=== PATIENT | male | born 1930 | race Hispanic/Latino ===

== ENCOUNTER → 2018-08-22 | Outpatient (CLI) | payer MEDICARE ==
[~2018-08-22] MED LIST: ACET1TAB12 PO; ALBU8.5H8 IH; AMLO1CAP12 PO; BENZ200C53 PO; METF-446 PO; ROSU10TA GT; SITA100T12 PO
== END | disposition home or self-care (01) ==
LOC: RAH 12:16
PROVIDERS: ATTEND Podiatrist
DX: M77.31 Calcaneal spur, right foot (principal); M25.471 Effusion, right ankle; T84.19 Other mechanical complication of internal fixation device of bones of limb; X58.XXXS Exposure to other specified factors, sequela
CPT/HCPCS: 73610

== ENCOUNTER 2019-07-23 09:45 | Day surgery (SDC) | payer MEDICARE ==
[2019-07-21 14:19] VITALS: BP 160/62
[2019-07-21 14:20] LABS: BASOPHILS % (AUTO) 0.7 % (0.0-5.0); EOSINOPHILS % (AUTO) 2.4 % (0.0-8.0); HEMATOCRIT 37.3 % (42-54); MEAN CORPUSCULAR HEMOGLOBIN 28.7 pg (27.0-33.0); MEAN CORPUSCULAR HGB CONC 33.7 g/dL (32.0-36.0); MEAN CORPUSCULAR VOLUME 85.1 fL (79-99); MONOCYTES % (AUTO) 7.1 % (3.0-13.0); NEUTROPHILS % (AUTO) 73.8 % (40.0-77.0); NUCLEATED RED BLOOD CELLS 0.1 % (0.0-0.19); PLATELET COUNT (AUTO) 209 K/uL (130-400); RED BLOOD CELL COUNT(AUTO) 4.38 MIL/uL (4.50-6.20); RED CELL DISTRIBUTION WIDTH 14.5 % (11.0-15.5); WHITE BLOOD COUNT (AUTO) 7.4 K/uL (4.8-10.8)
[2019-07-21 14:24] LABS: APPEARANCE,URINE SL CLOUDY (CLEAR); BILIRUBIN,URINE NEGATIVE (NEGATIVE); COLOR,URINE YELLOW (YELLOW); GLUCOSE, URINE (UA) NEGATIVE (NEGATIVE); KETONES,URINE NEGATIVE (NEGATIVE); LEUKOCYTE ESTERASE ,URINE MODERATE (NEGATIVE); NITRATE,URINE POSITIVE (NEGATIVE); OCCULT BLOOD,URINE SMALL (NEGATIVE); PROTEIN,URINE NEGATIVE (NEGATIVE); UROBILINOGEN,URINE 0.2 mg/dL (0.2-1.0)
[2019-07-21 14:33] LABS: CREATININE 1.4 mg/dL (0.5-1.5); POTASSIUM 4.4 mmol/L (3.5-5.1)
[2019-07-21 14:34] LABS: BACTERIA,URINE Many /HPF (None Seen); RBC,URINE 0-1 /HPF (0-1); SQUAMOUS EPITHELIAL CELL,UR Rare /HPF (0-2); WBC,URINE >100 /HPF (0-1)
[2019-07-21 14:36] LABS: INR 1.04 (0.85-1.15); PARTIAL THROMBOPLASTIN TIME 30.1 SEC (26.3-35.5); PROTHROMBIN TIME 10.9 SEC (9.6-11.6)
--- NOTE | 2019-07-22 14:40 | NUR ---
REPORTED EKG WITH DOCTOR CORCORAN NO NEW ORDERS, OKAY TO PROCEED.
--- NOTE | 2019-07-22 17:12 | NUR ---
DR. EDEN NOTIFIED OF ABNORMAL UA OK TO PROCEED PT ON ANTIBIOTICS
[2019-07-23] VITALS (14 sets, daily range): BP systolic 99–137; BP diastolic 42–60
[~2019-07-23] VITALS: Ht 162.6 cm; Wt 85.5 kg
[~2019-07-23 09:45] MED LIST changes: -ACET1TAB12 PO; -ALBU8.5H8 IH; -AMLO1CAP12 PO; +AMLO5TAB9 PO; +ASPI-555 PO; -BENZ200C53 PO; +CEFTRIAXONE SODIUM 1 GM IVP ONE; +CYAN500T63 PO; +DOCU-116 PO; +FINA5TAB41 PO; +GENTAMICIN SULFATE IV PRN; +LINA5TAB PO; +LOSA50TA64 PO; -METF-446 PO; -ROSU10TA GT; +ROSU5TAB12 PO; -SITA100T12 PO; +SODIUM CHLORIDE 0.9% IV PRN; +TAMS-1 PO
[2019-07-23] MEDS ORDERED: SODIUM CHLORIDE 0.9% 1000ML 1,000 ML IV ONE (10:55)
[2019-07-23] MEDS: CEFTRIAXONE SODIUM 1 GM ONE ×2 (11:10→13:15)
[2019-07-23] MEDS ORDERED: GENTAMICIN SULFATE 360 MG in SODIUM CHLORIDE 0.9% 100 ML IV PRN (11:15)
[2019-07-23] MEDS ORDERED: SUCCINYLCHOLINE 200MG/10ML SYR ONE (11:18)
[2019-07-23] MEDS ORDERED: MIDAZOLAM HCL 1 MG/ML 2ML VIAL ONE ×2 (11:18→14:38)
[2019-07-23] MEDS ORDERED: GLYCOPYRROLATE 1 MG/5 ML SYRINGE ONE (11:18)
[2019-07-23] MEDS ORDERED: DEXAMETHASONE SOD PHOSPHATE 10MG/ML 1ML VIAL ONE (11:18)
[2019-07-23] MEDS ORDERED: LIDOCAINE PF 2% 5ML ABBOJECT ONE (11:18)
[2019-07-23] MEDS ORDERED: ONDANSETRON HCL 4 MG/2 ML VIAL ONE (11:19)
[2019-07-23] MEDS ORDERED: FENTANYL CITRATE PF 50 MCG/1 ML 2ML VIAL ONE (11:19)
[2019-07-23] MEDS ORDERED: ROCURONIUM 10MG/1ML SYR 10 MG/ML ML ONE (11:19)
[2019-07-23] MEDS ORDERED: PROPOFOL 10 MG/ML 20ML VIAL IV ONE (11:19)
[2019-07-23] MEDS ORDERED: NEOSTIGMINE 5MG/5ML SYR IV ONE (11:19)
[2019-07-23] MEDS ORDERED: MEPERIDINE-PF 25 MG/ML SYG ONE ×2 (14:47→14:59)
== END 2019-07-23 16:20 | disposition home or self-care (01) ==
LOC: DAH 09:45
PROVIDERS: ATTEND Urology
DX: N40.1 Benign prostatic hyperplasia with lower urinary tract symptoms (principal); R33.9 Retention of urine, unspecified; N32.89 Other specified disorders of bladder; I10 Essential (primary) hypertension; E11.9 Type 2 diabetes mellitus without complications; E78.5 Hyperlipidemia, unspecified; Z85.46 Personal history of malignant neoplasm of prostate
CPT/HCPCS: 36415; 52648; 71045; 80048; 81001; 82948 ×2; 85025; 85610; 85730; 87077; 87088; 87186; 93005; 96365; A4215; A4221; A4222; A4223; A4354; A4358; A4600; A4663; A6260; J0330; J0696; J1100; J1580; J2001; J2175 ×2; J2250 ×2; J2405; J2704; J2710; J3010; J3490; J7030 ×2

== ENCOUNTER 2019-09-07 05:45 | Emergency (ER) | payer MEDICARE ==
[~2019-09-07 05:45] MED LIST changes: -CEFTRIAXONE SODIUM 1 GM IVP ONE; -GENTAMICIN SULFATE IV PRN; -SODIUM CHLORIDE 0.9% IV PRN
[2019-09-07 06:15] LABS: APPEARANCE,URINE CLOUDY (CLEAR); BILIRUBIN,URINE NEGATIVE (NEGATIVE); COLOR,URINE YELLOW (YELLOW); GLUCOSE, URINE (UA) NEGATIVE (NEGATIVE); KETONES,URINE 5 mg/dL (NEGATIVE); LEUKOCYTE ESTERASE ,URINE LARGE (NEGATIVE); NITRATE,URINE NEGATIVE (NEGATIVE); OCCULT BLOOD,URINE LARGE (NEGATIVE); PROTEIN,URINE 30 mg/dL (NEGATIVE); UROBILINOGEN,URINE 0.2 mg/dL (0.2-1.0)
[2019-09-07] MEDS ORDERED: HYOSCYAMINE SULFATE 0.125 MG TAB.SUBL SL ONE (06:16)
[2019-09-07 06:29] LABS: BASOPHILS % (AUTO) 0.6 % (0.0-5.0); EOSINOPHILS % (AUTO) 1.3 % (0.0-8.0); HEMATOCRIT 33.1 % (42-54); LYMPHOCYTES % (AUTO) 12.7 % (21.0-51.0); MEAN CORPUSCULAR HEMOGLOBIN 28.9 pg (27.0-33.0); MEAN CORPUSCULAR HGB CONC 34.1 g/dL (32.0-36.0); MEAN CORPUSCULAR VOLUME 84.9 fL (79-99); NEUTROPHILS % (AUTO) 78.4 % (40.0-77.0); PLATELET COUNT (AUTO) 184 K/uL (130-400); RED CELL DISTRIBUTION WIDTH 14.7 % (11.0-15.5); WHITE BLOOD COUNT (AUTO) 8.1 K/uL (4.8-10.8)
[2019-09-07 06:39] LABS: CREATININE 0.9 mg/dL (0.5-1.5); POTASSIUM 3.8 mmol/L (3.5-5.1)
[2019-09-07 06:41] LABS: INR 1.09 (0.85-1.15); PARTIAL THROMBOPLASTIN TIME 31.7 SEC (26.3-35.5); PROTHROMBIN TIME 11.4 SEC (9.6-11.6)
[2019-09-07 06:45] LABS: ALBUMIN 3.2 g/dL (3.5-5.0); BILIRUBIN,TOTAL 0.7 mg/dL (0.2-1.0); TOTAL PROTEIN, SERUM 6.5 g/dL (6.0-8.3)
[2019-09-07 07:28] LABS: BACTERIA,URINE Rare /HPF (None Seen); RBC,URINE 0-1 /HPF (0-1); SQUAMOUS EPITHELIAL CELL,UR Rare /HPF (0-2); WBC,URINE TNTC /HPF (0-1)
[2019-09-07] MEDS ORDERED: LEVOFLOXACIN 500 MG/D5W 100 ML 100 ML ONE (07:46)
[2019-09-07] MEDS ORDERED: DOCUSATE SODIUM 100 MG CAP PO ONE (08:39)
== END 2019-09-07 08:47 | disposition home or self-care (01) ==
LOC: EDH 05:45
DX: N39.0 Urinary tract infection, site not specified (principal); E11.9 Type 2 diabetes mellitus without complications; I10 Essential (primary) hypertension; E78.00 Pure hypercholesterolemia, unspecified; Z90.49 Acquired absence of other specified parts of digestive tract; Z88.8 Allergy status to other drugs, medicaments and biological substances
CPT/HCPCS: 36415; 74176; 80053; 81001; 82150; 82550; 83690; 84484; 85025; 85610; 85730; 87088; 93005; 96365; 99285; J1956

== ENCOUNTER 2021-04-14 16:26 | Observation (INO) | payer MEDICARE ==
[~2021-04-14] VITALS: Ht 167.6 cm; Wt 81.2 kg
[~2021-04-14 16:26] MED LIST changes: +AMLO-257 PO; -AMLO5TAB9 PO; -ASPI-555 PO; +ASPI-556 PO; -CYAN500T63 PO; +CYAN500T9 PO
[2021-04-14 16:27] VITALS: BP 112/60
[2021-04-14 17:26] LABS: HEMATOCRIT 32.9 % (42-54); MEAN CORPUSCULAR HEMOGLOBIN 28.3 pg (27.0-33.0); MEAN CORPUSCULAR HGB CONC 36.2 g/dL (32.0-36.0); MEAN CORPUSCULAR VOLUME 78.3 fL (79-99); PLATELET COUNT (AUTO) 231 K/uL (130-400); WHITE BLOOD COUNT (AUTO) 7.2 K/uL (4.8-10.8)
[2021-04-14 17:57] LABS: ALBUMIN 3.2 g/dL (3.5-5.0); BILIRUBIN,TOTAL 0.5 mg/dL (0.2-1.0); POTASSIUM 3.4 mmol/L (3.5-5.1); TOTAL PROTEIN, SERUM 6.2 g/dL (6.0-8.3)
[2021-04-14 18:30] LABS: BASOPHILS % (MANUAL) 1 % (0-2); EOSINOPHILS % (MANUAL) 3 % (1-6); LYMPHOCYTES % (MANUAL) 25 % (22-44); MAN.DIFF COMMENT-IMPRESSION MANUAL DIFFERENTIAL; MONOCYTES % (MANUAL) 6 % (2-9); SEGMENTED NEUTROPHILS % 65 % (40-70)
[2021-04-14 18:31] VITALS: BP 103/55
[2021-04-14 18:31] LABS: PLATELET MORPHOLOGY COMMENT ADEQUATE
[2021-04-14 19:04] LABS: INR 1.09 (0.85-1.15); PROTHROMBIN TIME 11.8 SEC (9.6-11.6)
[2021-04-14 19:18] LABS: CREATINE KINASE, TOTAL 259 U/L (21-232); MYOGLOBIN 201 ng/mL (10-92); TROPONIN I < 0.04 ng/mL (0.00-0.06)
[2021-04-14] MEDS ORDERED: 0.9%NACL 1000ML 1,000 ML IV ONE (20:15)
[2021-04-14 20:30] VITALS: BP 102/51
[2021-04-14 21:38] LABS: APPEARANCE,URINE Clear (CLEAR); BILIRUBIN,URINE Negative (NEGATIVE); COLOR,URINE Yellow (YELLOW); GLUCOSE, URINE (UA) Negative (NEGATIVE); KETONES,URINE Negative (NEGATIVE); LEUKOCYTE ESTERASE ,URINE Negative (NEGATIVE); NITRATE,URINE Negative (NEGATIVE); OCCULT BLOOD,URINE Negative (NEGATIVE); PH,URINE 6.5 (5.0-8.0); PROTEIN,URINE Negative (NEGATIVE)
[2021-04-14 22:30] VITALS: BP_SYST 101; BP_SYST 118; BP_DIAS 45; BP_DIAS 57
[2021-04-14] MEDS: TRAZODONE HCL 50 MG TAB PO PRN (23:24)
[2021-04-14] MEDS ORDERED: SODIUM CHLORIDE 1,000 MG TAB PO STA (23:27)
[2021-04-14] MEDS ORDERED: DEXTROSE 50%-WATER 50 ML DISP.SYRIN IV PRN (23:30)
[2021-04-14] MEDS ORDERED: KCL 20 MEQ ERTAB PO PRN (23:30)
[2021-04-14] MEDS ORDERED: NITROGLYCERIN 0.4 MG SL TAB SL PRN (23:30)
[2021-04-14] MEDS ORDERED: GUAIFENESIN-DM 200/20 MG 10 ML PO PRN (23:30)
[2021-04-14] MEDS ORDERED: MAG/ALUM/SIMETH 30 ML UDCUP PO PRN (23:30)
[2021-04-14] MEDS ORDERED: POTASSIUM CHLORIDE 20MEQ/100ML 100 ML IV PRN (23:30)
[2021-04-14] MEDS ORDERED: ONDANSETRON 4MG INJ IV PRN (23:30)
[2021-04-14] MEDS ORDERED: POTASSIUM CHLORIDE 10% ELIXIR 20 MEQ/15 ML UDCUP PO PRN (23:30)
[2021-04-14] MEDS ORDERED: ACETAMINOPHEN 325 MG TAB PO PRN ×2 (23:30)
[2021-04-14] MEDS ORDERED: GLUCAGON 1MG KIT 1 MG ML IM PRN (23:30)
[2021-04-14] MEDS ORDERED: LACTULOSE 20 GM/30 ML UDCUP PO PRN (23:30)
[2021-04-15] VITALS (8 sets, daily range): BP systolic 107–135; BP diastolic 54–85
[2021-04-15] MEDS ORDERED: SODIUM CHLORIDE 1,000 MG TAB ONE (01:09)
[2021-04-15] MEDS ORDERED: gas x (02:37)
[2021-04-15] MEDS ORDERED: BRIM5DRO OU (02:37)
[2021-04-15] MEDS ORDERED: LOSA25TA41 PO (02:37)
[2021-04-15] MEDS ORDERED: ACET325T51 PO (02:37)
[2021-04-15] MEDS ORDERED: FINA5TAB41 PO (02:37)
[2021-04-15] MEDS ORDERED: AMLO-258 PO (02:37)
[2021-04-15] MEDS ORDERED: BIMA12.5OS OU (02:37)
[2021-04-15] MEDS ORDERED: ROSU5TAB12 PO (02:37)
[2021-04-15] MEDS ORDERED: TRAZ-185 PO (02:37)
[2021-04-15] MEDS ORDERED: [UNRECOGNIZED DRUG - OTHER] (02:37)
[2021-04-15] MEDS ORDERED: CYCL5.5D OU (02:37)
[2021-04-15] MEDS ORDERED: LINA5TAB PO (02:37)
[2021-04-15] MEDS ORDERED: vitamin b12 PO (02:37)
[2021-04-15] MEDS ORDERED: LINA72CA PO (02:37)
[2021-04-15] MEDS ORDERED: TAMS-1 PO (02:37)
[2021-04-15] MEDS: INSULIN HUMULIN R 100 UNIT/ML 3ML SQ SCH ×4 (05:31→20:44)
[2021-04-15 06:04] LABS: BASOPHILS % (AUTO) 0.4 % (0.0-5.0); EOSINOPHILS % (AUTO) 1.3 % (0.0-8.0); HEMATOCRIT 34.6 % (42-54); LYMPHOCYTES % (AUTO) 19.1 % (21.0-51.0); MEAN CORPUSCULAR HEMOGLOBIN 28.4 pg (27.0-33.0); MEAN CORPUSCULAR HGB CONC 35.3 g/dL (32.0-36.0); MEAN CORPUSCULAR VOLUME 80.7 fL (79-99); MONOCYTES % (AUTO) 10.4 % (3.0-13.0); NEUTROPHILS % (AUTO) 68.5 % (40.0-77.0); PLATELET COUNT (AUTO) 213 K/uL (130-400); RED BLOOD CELL COUNT(AUTO) 4.29 MIL/uL (4.50-6.20); WHITE BLOOD COUNT (AUTO) 7.8 K/uL (4.8-10.8)
[2021-04-15 06:27] LABS: POTASSIUM 3.6 mmol/L (3.5-5.1)
[2021-04-15] MEDS: FAMOTIDINE 20MG VIAL IV SCH (08:36)
[2021-04-15] MEDS: ENOXAPARIN SODIUM 40 MG/0.4 ML SYRINGE SQ SCH (08:37)
[2021-04-15] MEDS: TRAZODONE HCL 50 MG TAB PO PRN (21:04)
[2021-04-16 03:56] VITALS: BP 135/55
[2021-04-16 05:43] LABS: POTASSIUM 4.3 mmol/L (3.5-5.1)
[2021-04-16] MEDS: INSULIN HUMULIN R 100 UNIT/ML 3ML SQ SCH ×2 (06:31→11:30)
[2021-04-16 08:00] VITALS: BP 131/74
[2021-04-16] MEDS: FAMOTIDINE 20MG VIAL IV SCH (10:10)
[2021-04-16] MEDS: ENOXAPARIN SODIUM 40 MG/0.4 ML SYRINGE SQ SCH (10:12)
[2021-04-16] MEDS ORDERED: ACETAMINOPHEN 325 MG TAB PO PRN (11:45)
[2021-04-16] MEDS ORDERED: TRAZODONE HCL 50 MG TAB PO PRN (11:45)
[2021-04-16 11:56] VITALS: BP 121/70
[2021-04-16] MEDS ORDERED: FINASTERIDE 5 MG TABLET PO SCH (12:00)
[2021-04-16] MEDS ORDERED: BRIMONIDINE TARTRATE OU SCH (21:00)
[2021-04-16] MEDS ORDERED: AMLODIPINE 5 MG TAB PO SCH (21:00)
[2021-04-16] MEDS ORDERED: BIMATOPROST OU SCH (21:00)
[2021-04-16] MEDS ORDERED: TAMSULOSIN HCL 0.4 MG CAP.ER.24H PO SCH (21:00)
[2021-04-16] MEDS ORDERED: LINAGLIPTIN 5 MG TABLET PO SCH (21:00)
[2021-04-16] MEDS ORDERED: ATORVASTATIN 10 MG TABLET PO SCH (21:00)
[2021-04-16] MEDS ORDERED: TIMOLOL OU SCH (21:00)
[2021-04-16] MEDS ORDERED: CYCLOSPORINE OU SCH (21:00)
[2021-04-17] MEDS ORDERED: LINACLOTIDE 72 MCG PO SCH (08:00)
[2021-04-17] MEDS ORDERED: LOSARTAN 25 MG TABLET PO SCH (09:00)
== END 2021-04-16 16:30 | disposition home or self-care (01) ==
LOC: EDH 16:26 → EDHIP 22:22 → 3AH 23:39
PROVIDERS: ADMIT Internal Medicine Critical Care Medicine; ATTEND Internal Medicine Critical Care Medicine
DX: R41.82 Altered mental status, unspecified (principal); E87.1 Hypo-osmolality and hyponatremia; I10 Essential (primary) hypertension; E11.9 Type 2 diabetes mellitus without complications; C61 Malignant neoplasm of prostate; Z79.899 Other long term (current) drug therapy; Z87.891 Personal history of nicotine dependence
CPT/HCPCS: 36415 ×3; 70450; 71045; 71250; 80048 ×2; 80053; 81003; 82550; 82948 ×6; 83874; 84300; 84484 ×2; 85025 ×2; 85610; 96361 ×2; 96372 ×2; 96374; 96376; 99291; G0378 ×42; J1650 ×2; J3490 ×2